=== PATIENT | male | born 1950 | race Caucasian/White ===

== ENCOUNTER 2018-07-06 14:45 | Emergency (ER) | payer MEDICARE, OTHER ==
[2018-07-06] MEDS ORDERED: DIPH,PERTUSS(ACELL),TET VAC/PF 0.5 ML DISP.SYRIN IM ONE (14:55)
--- NOTE | 2018-07-06 14:58 | ED Physician Documentation ---
Upper Extremity Injury - HISTORIAN Historian: patient - HPI Chief Complaint: Upper Extremity Injury Additional Information: Patient is a 68-year-old female that presents to the ER with a left hand (thumb injury). His hand was slammed in a door at a gas station. Patient has an open laceration to the distal 1st phalanx- bleeding is controlled- he is on blood thinner. Neurovasculars are intact. Deformity to the left thumb with swelling to the left hand. Front/Back of Body, Lg (Nolan): 1 - open laceration with deformity of finger Onset: just prior to arrival Where: other (gas station) Severity: mild Duration: intermittent pain Context: other (smashed between a door) Associated Symptoms: denies: feeling loss Modifying Factors: pain on movement Further Comments: no - ROS CONST: no problems CVS/RESP: none NEURO: none MS/SKIN/LYMPH: none GI/: denies: problems urinating - PAST HX Past History: Lt handed, cardiac disease, AMI, diabetes Type 1, asthma Immunizations: denies: tetanus (unsure) Allergies/Adverse Reactions: Allergies Allergy/AdvReac Type Severity Reaction Status Date / Time aspirin Allergy Verified 07/06/18 15:21 bee venom protein (honey bee) Allergy Verified 07/06/18 15:21 Home Medications: Ambulatory Orders Medication Instructions Recorded Alprazolam [Xanax] 0.75 mg PO HS 07/06/18 Atorvastatin Calcium [Lipitor] 40 mg PO HS 07/06/18 Carvedilol [Coreg] 12.5 mg PO BID 07/06/18 Cholecalciferol (Vitamin D3) 1,000 unit PO BID 07/06/18 [Vitamin D3] Clopidogrel Bisulfate [Plavix] 75 mg PO QD 07/06/18 Cyanocobalamin (Vitamin B-12) 1,000 mcg PO AM 07/06/18 [Vitamin B-12] Demeclocycline HCl [Declomycin] 300 mg PO BID 07/06/18 Ferrous Gluconate 324 mg PO AM 07/06/18 Gabapentin [Neurontin] 300 mg PO HS 07/06/18 Galantamine HBr [Razadyne] 8 mg PO BID 07/06/18 Hydroxyzine Pamoate [Vistaril] 30 mg PO HS 07/06/18 Insulin Glargine,Hum.rec.anlog 65 unit SUBCUT HS 07/06/18 [Lantus] Liraglutide [Victoza 2-Bossman] 1.8 units SUBCUT AM 07/06/18 Loratadine [Claritin] 10 mg PO AM 07/06/18 Losartan Potassium [Cozaar] 50 mg PO DAILY 07/06/18 Metformin HCl [Glucophage] 1,000 mg PO BID 07/06/18 [place]-3 Acid Ethyl Esters [Lovaza] 1 gm PO BID 07/06/18 Pantoprazole Sodium [Protonix] 40 mg PO BID 07/06/18 Pyridoxine HCl (Vitamin B6) 50 mg PO D 07/06/18 [Pyridoxine HCl] Venlafaxine HCl [Effexor] 75 mg PO HS 07/06/18 Zolpidem Tartrate [Ambien] 10 mg PO HS 07/06/18 - SOCIAL HX Smoking History: non-smoker Alcohol Use: none Drug Use: none - FAMILY HX Family History: none - VITAL SIGNS Vital Signs: Vital Signs Temp Pulse Resp BP Pulse Ox 98.3 F 84 20 152/64 96 07/06/18 16:00 07/06/18 16:00 07/06/18 16:00 07/06/18 16:00 07/06/18 16:00 - REVIEWED ASSESSMENTS Nursing Assessment Reviewed: Yes Vitals Reviewed: Yes Progress - Results/Orders Results/Orders: Pressure dressing was applied to affected finger due to bleeding ED Results Lab/Radiology - Radiology Radiology Impressions: Left hand, three views History: LEFT HAND SMASHED IN DOOR. SWELLING AND PAIN IN 1ST DIGIT. Findings: There is comminuted fracture of the distal portion of the 1st distal phalanx present with bandage in place. There also appears to be a transverse fracture through the through the tuft of the 4th distal phalanx with minimal dorsal displacement, this likely is old. The remaining osseous structures are intact. Impression: 1. Comminuted fracture of the distal 1st phalanx. 2. Transverse fracture through the tuft of the 4th distal phalanx with mild dorsal displacement, likely old. - Orders Orders: ED Orders Category Date Time Status FINGER 2 VIEWS OR MORE [RAD] Stat Exams 07/06/18 Completed HAND 3 VIEWS OR MORE [RAD] Stat Exams 07/06/18 Completed Diph,Pertuss(Acell),Tet Vac/Pf [Adacel] Med 07/06/18 14:55 Discontinued 0.5 ml IM .ONCE ONE Upper Extremity Injury Physic - Physical Exam General Appearance: no acute distress, alert Hand: bone tenderness, deformity, laceration, nail injury, swelling Wrist: normal inspection, non-tender, no evidence of injury, normal ROM Elbow/Forearm: normal inspection Shoulder: normal inspection Neuro/Vascular/Tendon: motor nml, sensation nml, ROM limited by pain Skin: warm,dry Head/ENT: nml inspection Neck/Back: nml inspection Resp/CVS: chest non-tender, breath sounds nml, heart sounds nml Abdomen: non-tender Discharge Clincal Impression: Comminuted fracture, Comminuted fracture of the distal 1st ph, Finger laceration with complication Referrals: Primary Doctor,No [Primary Care Provider] - 2 Days Additional Inst[facility]: [facility] the distal 1st phalanx to their ER Comments: Patient refused transport by ambulance- states that she would take patient- explained risks if patient did not [facility] straight [facility] the [facility] such as infection, compartment syndrome, loss of the use of finger or hand, excessive bleeding. Patient and voice understanding and patient states they will go straight to the [facility] ER. Condition: Good Disposition: 02 XFER [id number]-[id number] HOSP Decision to Admit: NO Decision Time: 17:40
--- NOTE | 2018-07-06 15:40 | Diagnostic Imaging Report ---
OMAYRA GREY [facility] [address] [facility].[address] [id number] Report Submission Date: Jul 06, 2018 3:27:50 PM RETAIL AGENT Patient Study Name: DAGO LOMELI Date: Jul 06, 2018 3:07:19 PM RETAIL AGENT Modality Type: DX Gender: M Description: FINGER 2 VIEWS OR MORE : 54 Institution: [facility] Physician: OMAYRA GREY Left 1st finger, three views History: LEFT HAND SMASHED IN DOOR. SWELLING AND PAIN IN 1ST DIGIT. Findings: Comminuted fracture of the distal portion of the 1st distal phalanx is present. The fracture fragments are near anatomic alignment. The soft tissue swelling of the 1st digit. Impression: 1. Comminuted fracture of the distal portion of the distal 1st phalanx. Electronically signed on Jul 06, 2018 3:27:50 PM RETAIL AGENT by: Apolinar VALE
--- NOTE | 2018-07-06 15:41 | Diagnostic Imaging Report ---
OMAYRA GREY [facility] [address] [facility].[address] [id number] Report Submission Date: Jul 06, 2018 3:28:44 PM BAIT TIER Patient Study Name: DAGO LOMELI Date: Jul 06, 2018 3:07:19 PM BAIT TIER Modality Type: DX Gender: M Description: HAND 3 VIEWS OR MORE : 54 Institution: [facility] Physician: OMAYRA GREY Left hand, three views History: LEFT HAND SMASHED IN DOOR. SWELLING AND PAIN IN 1ST DIGIT. Findings: There is comminuted fracture of the distal portion of the 1st distal phalanx present with bandage in place. There also appears to be a transverse fracture through the through the tuft of the 4th distal phalanx with minimal dorsal displacement, this likely is old. The remaining osseous structures are intact. Impression: 1. Comminuted fracture of the distal 1st phalanx. 2. Transverse fracture through the tuft of the 4th distal phalanx with mild dorsal displacement, likely old. Electronically signed on Jul 06, 2018 3:28:44 PM BAIT TIER by: Apolinar Marie [facility]
[2018-07-06 16:10] VITALS: BP 152/64
== END 2018-07-06 16:05 | disposition short-term general hospital (02) ==
LOC: ED 14:45
DX: S62.522A Displaced fracture of distal phalanx of left thumb, initial encounter for closed fracture (principal); S61.012A Laceration without foreign body of left thumb without damage to nail, initial encounter; W23.1XXA Caught, crushed, jammed, or pinched between stationary objects, initial encounter; Y93.89 Activity, other specified; Y92.524 Gas station as the place of occurrence of the external cause
CPT/HCPCS: 73130; 73140; 99285